=== PATIENT | male | born 1980 | race Caucasian/White ===

== ENCOUNTER 2017-03-03 06:31 | Day surgery (SDC) | payer OTHER ==
[2017-03-03] MEDS ORDERED: LIDOCAINE 1% 300 MG/30 ML SDV IF PRN (07:55)
--- NOTE | 2017-03-03 14:15 | GPN ---
[f rep st] PROCEDURE NOTE DATE OF PROCEDURE: 03/03/2017 PROCEDURE PERFORMED: Implantable loop recorder. INDICATION FOR LOOP RECORDER: History of exertional palpitations. He did have evidence of paroxysm al atrial fibrillation while traveling in [place], [place], last year. He has been seen in [facility] by Dr. Moreno. There is concern for possible supraventricular tachycardia, as well as paroxy smal atrial fibrillation. Decision was made for implantable loop recorder to assess further the exac t mechanisms of his tachycardia that creates symptoms with exercise. DESCRIPTION OF PROCEDURE: After informed consent was obtained. The patient was brought to the [facility] procedure suite where he was prepped and draped in sterile fashion. Using 1% lidocaine, the 5th intercostal space, 2 cm from midline, was anesthetized with lidocaine without epinephrine. Once von ropriate level of anesthesia was obtained locally at the surgical site, incision was made with scalp el provided in the [employer] kit. This incision was enhanced with a scalpel blade. A tract was mad e with the tool provided in the [employer] kit. The implantable loop recorder was injected under the skin without complication. Hemostasis was achieved. Steri-Strips were placed. Sterile dressing an d Tegaderm were applied. Postoperative device check demonstrated normal device function with approp riate capture P waves. He tolerated the procedure well without complications. PLAN: 1. Patient be discharged home. 2. Patient has been postoperative instructions. 3. Patient will follow up in the office next week for wound and device check. /[id number]/MODL
== END 2017-03-03 09:15 | disposition home or self-care (01) ==
LOC: FCATH 06:31
PROVIDERS: ATTEND Internal Medicine Cardiovascular Disease
PROC: 0JH60PZ Insertion of Cardiac Rhythm Related Device into Chest Subcutaneous Tissue and Fascia, Open Approach (ICD-10-PCS; principal; 2017-03-03)
DX: I48.0 Paroxysmal atrial fibrillation (principal); R00.2 Palpitations; Z88.0 Allergy status to penicillin
CPT/HCPCS: C1764

== ENCOUNTER → 2017-04-27 | Outpatient (CLI) | payer OTHER | LOC: BMCIMAGING 16:23 | PROVIDERS: ATTEND Internal Medicine | DX: R07.81 Pleurodynia (principal) ==

== ENCOUNTER → 2017-12-04 | Outpatient (CLI) | payer OTHER | LOC: FIMAGING 17:37 | PROVIDERS: ATTEND Internal Medicine | DX: Z13.828 Encounter for screening for other musculoskeletal disorder (principal) ==

== ENCOUNTER → 2017-12-11 | Outpatient (CLI) | payer OTHER | LOC: BMCIMAGING 09:59 | PROVIDERS: ATTEND Internal Medicine | DX: N64.4 Mastodynia (principal) ==